=== PATIENT | female | born 1990 | race African-American/Black ===

== ENCOUNTER 2019-01-14 12:18 | Emergency (ER) | payer MEDICAID ==
[~2019-01-14] VITALS: Ht 162.6 cm; Wt 90.7 kg
--- NOTE | 2019-01-14 12:35 | NUR ---
Patient ambulated to bed 3. RN evaluating patient at bedside.
[2019-01-14 12:36] VITALS: BP 127/73
--- NOTE | 2019-01-14 12:36 | NUR ---
PT ARRIVED TO ED C.O SWOLLEN THROAT X A MONTH. NO RESP DISTRESS NOTED. AIRWAY CLEAR AND PATENT. LUNG SOUNDS CLEAR ALL THROUGHOUT, PT IS ABLE TO SWALLOW. THROAT AREA SHOWS A GOITER LOOKING APPEARANCE. VSS. DENIES ANY PAIN. PT STATES SHE HAD SEAFOOD YESTERDAY. SPEECH IS CLEAR. A & O X 4. NKA. PMH: DENIES ANY.
--- NOTE | 2019-01-14 13:29 | NUR ---
PATIENT LEFT WITHOUT BEING SEEN BY DR. DONOVAN. NO FURTHER CARE PROVIDED FOR PATIENT.
[2019-01-14 13:30] VITALS: BP 127/73
== END 2019-01-14 13:29 | disposition left against medical advice (07) ==
LOC: MED 12:18
DX: J02.9 Acute pharyngitis, unspecified (principal); Z53.21 Procedure and treatment not carried out due to patient leaving prior to being seen by health care provider